=== PATIENT | male | born 1940 | race Caucasian/White ===

== ENCOUNTER 2019-05-22 11:20 | Outpatient (CLI) | payer SELFPAY ==
[2019-05-22 19:20] LABS: BASOPHILS # (AUTO) 0.1 10^3/uL (0.0-0.1); BASOPHILS % (AUTO) 0.6 %; EOSINOPHILS # (AUTO) 0.2 10^3/uL (0.0-0.7); EOSINOPHILS % (AUTO) 2.1 %; HGB - HEMOGLOBIN 13.7 g/dL (14.0-18.0); LYMPHOCYTES % (AUTO) 23.6 %; MEAN CORPUSCULAR HEMOGLOBIN 31.4 pg (27.0-31.0); MEAN CORPUSCULAR HGB CONC 31.9 g/dL (32.0-36.0); MEAN CORPUSCULAR VOLUME 98.4 fL (80.0-94.0); MEAN PLATELET VOLUME 11.9 fL (7.4-11.4); MONOCYTES # (AUTO) 0.7 10^3/uL (0.0-1.0); MONOCYTES % (AUTO) 7.7 %; NEUTROPHILS # (AUTO) 5.6 10^3/uL (1.5-6.6); NEUTROPHILS % (AUTO) 65.1 %; PLT - PLATELET COUNT 223 10^3/uL (130-450); RED BLOOD COUNT 4.37 10^6/uL (4.70-6.10); RED CELL DISTRIBUTION WIDTH 13.9 % (12.0-15.0); WHITE BLOOD COUNT 8.6 x10^3/uL (4.8-10.8)
[2019-05-22 19:31] LABS: CALCIUM 9.2 mg/dL (8.5-10.3); CREATININE 0.9 mg/dL (0.6-1.2)
== END 2019-05-22 23:59 | disposition home or self-care (01) ==
LOC: LAB.N 11:20
PROVIDERS: ATTEND Physician Assistant Medical
DX: I10 Essential (primary) hypertension (principal)
CPT/HCPCS: 36415; 80048; 84443; 85025

== ENCOUNTER 2019-06-15 13:35 | Emergency (ER) | payer SELFPAY ==
[2019-06-15] MEDS ORDERED: TETANUS/DIPHTHERIA/PERTUSSIS 0.5 ML SYRINGE IM ONE (13:44)
--- NOTE | 2019-06-15 13:46 | ED Physician Documentation ---
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 No distal neurovascular compromise. It measures about 3 cm.) - Neuro Neuro: Alert and oriented X 3, Normal speech Results - Vitals Vitals: Vital Signs - 24 hr 06/15/19 13:39 Temperature 36.8 C Heart Rate 90 Respiratory 16 Rate Blood Pressure 134/74 H O2 Saturation 93 Oxygen O2 Source Room air Procedures - Laceration (location) R forearm Length in cm: 3 Wound type: Irregular, Superficial, Into subcut fat Anesthesia: Lidocaine 1%, With bicarb Wound Preparation: Irrigated copiously NS Skin layer closure: Nylon, Interrupted, Size #-0 - enter number (4-0), Sutures - enter # (6) Other: Tetanus booster given Complexity: Simple Departure - Departure Disposition: 01 Home, Self Care Clinical Impression: Laceration Condition: Good Record reviewed to determine appropriate education?: Yes Instructions: ED Laceration All Comments: Come back for any signs of infection which would include: Redness, swelling, drainage, increased pain, or fevers. You can wash it soap and water. Keep it covered and moist with bacitracin ointment which is available over the counter; avoid neosporin. Follow-up with your physician in 14 days for suture removal. Your blood pressure was elevated today on check into the emergency department. This does not mean that you have hypertension, it is a common phenomenon to come to the emergency department and have elevated blood pressure. I recommend that you see your primary care physician within the week to have it rechecked when you are feeling better. Regrese por cualquier signo de infeccin que incluya: enrojecimiento, hinchazn, drenaje, aumento del dolor o fiebre. Puedes lavarlo con agua y jabn. Mantngalo cubierto y hmedo con ungento de bacitracina disponible sin receta mdica; Evitar la neosporina. Aundrea un seguimiento con jones mdico en 14 jaime para retirar la sutura. Jones presin arterial se elev hoy al registrarse en el departamento de emergencias. [place] no significa que tenga hipertensin, es un fenmeno comn acudir al departamento de emergencias y tener presin arterial elevada. Le recomiendo que consulte a jones mdico de atencin primaria dentro de la semana para que lo revisen nuevamente cuando se sienta mejor.
[2019-06-15] MEDS ORDERED: BUFFERED LIDOCAINE 10 ML SYRINGE SUBQ STA (13:47)
[2019-06-15 14:34] VITALS: BP 134/71
== END 2019-06-15 14:33 | disposition home or self-care (01) ==
LOC: ED 13:35
DX: S51.811A Laceration without foreign body of right forearm, initial encounter (principal); W20.1XXA Struck by object due to collapse of building, initial encounter; R03.0 Elevated blood-pressure reading, without diagnosis of hypertension
CPT/HCPCS: 12002; 90471

== ENCOUNTER 2019-08-05 02:13 | Outpatient (CLI) | payer SELFPAY | END 2019-08-05 02:14 | disposition critical access hospital (66) | LOC: EMS 02:13 | PROVIDERS: ATTEND Surgery | DX: R04.0 Epistaxis (principal) | CPT/HCPCS: A0425; A0429 ==

== ENCOUNTER 2019-08-05 02:33 | Emergency (ER) | payer SELFPAY ==
[2019-08-05] MEDS ORDERED: CAPTOPRIL 12.5 MG TABLET PO ONE (02:49)
--- NOTE | 2019-08-05 02:52 | ED Physician Documentation ---
History of Present Illness - Stated complaint Stated Complaint: EPISTAXIS - Chief complaint Chief Complaint: Heent - Additonal information Additional information: This is a 79-year-old male with a history of hypertension who presents with no sebleed and hypertension as well as resolved chest pain. Patient states that he woke up with some bleeding from his nose, he tried to hold pressure in the front of his nose but he felt the blood going back down his throat. EMS was called and when they arrived the bleeding had stopped, however on check of patient's blood pressure it was over 200 systolic. Patient also stated that earlier today in the afternoon he had a brief episode of chest pain which was substernal, he denies any pain at this time, denies shortness of breath. Because of the past chest pain and then high blood pressure he was brought here for further evaluation. Patient typically takes captopril 25 mg 3 times daily, but he has not taken it in the last day because he forgot. His daughters state that he his blood pressu re has been very high for a long time despite this medication. Review of Systems Constitutional: denies: Fever Nose: reports: Epistaxis Cardiac: reports: Chest pain / pressure. denies: Pedal edema Respiratory: denies: Dyspnea GI: denies: Vomiting Skin: denies: Rash Neurologic: denies: Generalized weakness PD PAST MEDICAL HISTORY - Past Medical History Cardiovascular: Hypertension Respiratory: None Neuro: None Endocrine/Autoimmune: None GI: None : Other HEENT: None Psych: None Musculoskeletal: None Derm: None - Present Medications Home Medications: Ambulatory Orders Medication Instructions Recorded Confirmed Captopril 25 mg PO TID 08/05/19 08/05/19 amLODIPine [Norvasc] 5 mg PO DAILY #15 tablet 08/05/19 - Allergies Allergies/Adverse Reactions: Allergies Allergy/AdvReac Type Severity Reaction Status Date / Time No Known Drug Allergies Allergy Verified 06/15/19 13:42 - Living Situation Living Situation: reports: With family Living Arrangement: reports: At home - Social History Does the pt smoke?: No Smoking Status: Never smoker PD ED PE NORMAL - Vitals Vital signs reviewed: Yes - General General: Alert and oriented X 3, No acute distress - HEENT HEENT: Other (Dried blood on the nares, no active bleeding.) - Neck Neck: Supple, no meningeal sign - Cardiac Cardiac: RRR - Respiratory Respiratory: No respiratory distress, Clear bilaterally - Abdomen Abdomen: Soft, Non distended - Derm Derm: Warm and dry - Extremities Extremities: No deformity - Neuro Neuro: Alert and oriented X 3 - Psych Psych: Normal mood, Normal affect Results - Vitals Vitals: Vital Signs - 24 hr 08/05/19 08/05/19 08/05/19 02:37 02:42 03:06 Temperature 37.4 C Heart Rate 69 67 Respiratory 17 17 Rate Blood Pressure 249/115 H 249/114 H O2 Saturation 96 97 08/05/19 08/05/19 08/05/19 03:08 03:15 04:15 Temperature Heart Rate 71 61 63 Respiratory 17 24 Rate Blood Pressure 249/117 H 218/107 H 236/123 H O2 Saturation 99 99 96 08/05/19 08/05/19 08/05/19 04:22 04:25 04:33 Temperature Heart Rate 62 57 L 58 L Respiratory 22 22 24 Rate Blood Pressure 199/88 H 219/97 H 220/103 H O2 Saturation 94 99 96 08/05/19 08/05/19 04:47 05:09 Temperature Heart Rate 67 Respiratory 17 Rate Blood Pressure 219/103 H 197/91 H O2 Saturation 100 Oxygen O2 Source Room air - EKG (time done) 2:36 Other comments: Other comments (Rate 69, rhythm sinus, no ST segment elevation or depression. T wave flattening in the lateral precordial leads.) - Labs Labs: Laboratory Tests 08/05/19 08/05/19 08/05/19 01:55 02:55 02:55 WBC 9.6 RBC 4.51 L Hgb 13.7 L Hct 41.8 L MCV 92.7 MCH 30.4 MCHC 32.8 RDW 12.7 Plt Count 226 MPV 11.4 Neut # (Auto) 6.5 Lymph # (Auto) 2.2 [place] # (Auto) 0.6 Eos # (Auto) 0.2 Baso # (Auto) 0.0 Absolute Nucleated RBC 0.00 Nucleated RBC % 0.0 PT 12.3 INR 1.1 Sodium 138 Potassium 3.6 Chloride 103 Carbon Dioxide 26 Anion Gap 9.0 BUN 27 H Creatinine 0.9 Estimated GFR (MDRD) 82 L Glucose 110 H Calcium 8.6 Total Bilirubin 0.8 AST 19 ALT 18 Alkaline Phosphatase 104 Troponin I High Sens Total Protein 7.1 Albumin 3.9 Globulin 3.2 Albumin/Globulin Ratio 1.2 Lipase 27 08/05/19 02:55 WBC RBC Hgb Hct MCV MCH MCHC RDW Plt Count MPV Neut # (Auto) Lymph # (Auto) [place] # (Auto) Eos # (Auto) Baso # (Auto) Absolute Nucleated RBC Nucleated RBC % PT INR Sodium Potassium Chloride Carbon Dioxide Anion Gap BUN Creatinine Estimated GFR (MDRD) Glucose Calcium Total Bilirubin AST ALT Alkaline Phosphatase Troponin I High Sens 4.3 Total Protein Albumin Globulin Albumin/Globulin Ratio Lipase - Rads (name of study) CXR Radiology: Other (Normal single view chest) PD MEDICAL DECISION MAKING - ED course Complexity details: considered differential (HTN, hypertensive urgency, epistaxis, coaguloapthy, ACS, PTX, MSK pain, PE) ED course: On arrival patient has no epistaxis. His BP is highly elevated, but he has a normal neurologic exam, no chest pain, no shortness of breath at this time. He was given lisinopril as we do not have captopril here. He was also given labetalol with temporary improvement of his BP to the high 100s systolic. CXR unremarkable, PE unlikely given pt's description of his chest pain and his normal O2 saturation and heart rate and the fact that it resolved. HS Troponin is negative and given his chest pain resolved hours ago a single troponin is sufficient. Pt was given a dose of hydralazine and on repeat examination his BP has improved to the high 100s. He is feeling well. I discussed that he needs to log his BP, take his medications every day as prescribed, and follow with his PCP as soon as possible to discuss further management of his BP. I prescribed 5mg amlodipine given that it sounds like his BP is in the high 100s or sometimes low 200s systolic even with the captopril. I discussed side effects and to hold the medication for lightheadedness or low blood pressure. I discussed return precuations including epistaxis not stopping with direct pressure, CP, shortness of breath, or any other concerning symptoms. Patient agreed and was discharged home. Departure - Departure Disposition: 01 Home, Self Care Clinical Impression: Epistaxis, Hypertension Condition: Good Instructions: ED Nosebleed, ED Hypertension Conf Out Of Control Follow-Up: Jones,doctor primario [Other] (lo mas pronto que es posible) Prescriptions: amLODIPine [Norvasc] 5 mg PO DAILY #15 tablet Comments: Usted tuvo sangrado de la naris y presion carolyn hoy. Es importante que ranjan jones medicamento cada petra, y probablemente necesita empezar otro medicamento para mejor control de la presion. Puede empezar la amlodipina y chequear la presion cada petra. Por favor, teresa yordy malik con jones doctor primario para chequear la presion y hablar sobre danial medicamentos. Si tiene mas sangrado que no pare con presion, dolor de pecho, dolor de jefferson delores, o otro sintomas neuvos, regrese a la china de emergencias. Discharge Date/Time: 08/05/19 05:33
[2019-08-05] MEDS ORDERED: LISINOPRIL 5 MG TABLET PO STA (02:56)
[2019-08-05] MEDS ORDERED: LABETALOL 20 MG/4 ML SYRINGE IVP STA ×2 (02:57→04:09)
[2019-08-05 03:01] LABS: BASOPHILS % (AUTO) 0.4 %; EOSINOPHILS # (AUTO) 0.2 10^3/uL (0.0-0.7); EOSINOPHILS % (AUTO) 1.9 %; HGB - HEMOGLOBIN 13.7 g/dL (14.0-18.0); LYMPHOCYTES # (AUTO) 2.2 10^3/uL (1.5-3.5); LYMPHOCYTES % (AUTO) 23.1 %; MEAN CORPUSCULAR HEMOGLOBIN 30.4 pg (27.0-31.0); MEAN CORPUSCULAR HGB CONC 32.8 g/dL (32.0-36.0); MEAN CORPUSCULAR VOLUME 92.7 fL (80.0-94.0); MEAN PLATELET VOLUME 11.4 fL (7.4-11.4); MONOCYTES # (AUTO) 0.6 10^3/uL (0.0-1.0); MONOCYTES % (AUTO) 6.1 %; NEUTROPHILS # (AUTO) 6.5 10^3/uL (1.5-6.6); NEUTROPHILS % (AUTO) 67.9 %; PLT - PLATELET COUNT 226 10^3/uL (130-450); RED BLOOD COUNT 4.51 10^6/uL (4.70-6.10); RED CELL DISTRIBUTION WIDTH 12.7 % (12.0-15.0); WHITE BLOOD COUNT 9.6 x10^3/uL (4.8-10.8)
[2019-08-05 03:07] LABS: INR 1.1 (0.8-1.2); PT - PROTHROMBIN TIME 12.3 secs (9.9-12.6)
--- NOTE | 2019-08-05 03:13 | XRAY Report ---
Reason: Chest Pain Procedure Date: 08/05/2019 Accession Number: [id number] / [id number] Procedure: XR - Chest 1 View X-Ray CPT Code: 51414 FULL RESULT: EXAM: CHEST RADIOGRAPHY EXAM DATE: 08/05/2019 03:04 AM. CLINICAL HISTORY: Chest Pain. COMPARISON: None. TECHNIQUE: 1 view. FINDINGS: Lungs/Pleura: No focal opacities evident. No pleural effusion. No pneumothorax. Mediastinum: Within exam limitations, the cardiomediastinal contour is normal. Other: None. IMPRESSION: Normal single view chest. RADIA
[2019-08-05 03:15] LABS: ALBUMIN 3.9 g/dL (3.2-5.5); ALBUMIN/GLOBULIN RATIO 1.2 (1.0-2.2); BILIRUBIN,TOTAL 0.8 mg/dL (0.2-1.0); CALCIUM 8.6 mg/dL (8.5-10.3); CREATININE 0.9 mg/dL (0.6-1.2); TOTAL PROTEIN 7.1 g/dL (6.7-8.2)
[2019-08-05] MEDS ORDERED: hydrALAZINE INJ 20 MG/ML VIAL IVP STA (04:37)
[2019-08-05 05:10] VITALS: BP 197/91
== END 2019-08-05 05:33 | disposition home or self-care (01) ==
LOC: EDUNIT# → ED 02:33
DX: R04.0 Epistaxis (principal); I10 Essential (primary) hypertension
CPT/HCPCS: 36415; 71045; 80053; 83690; 84484; 85025; 85610; 93005; 96374; 96375; 96376; 99284; A9270

== ENCOUNTER 2019-08-07 02:07 | Emergency (ER) | payer SELFPAY ==
[2019-08-07] MEDS ORDERED: cloNIDine 0.1 MG TABLET PO STA (03:33)
--- NOTE | 2019-08-07 04:07 | ED Physician Documentation ---
PD HPI HEENT - Stated complaint Stated Complaint: NONSTOP BLEEDING NOSE - Chief complaint Chief Complaint: Heent - History obtained from History obtained from: Patient, Family - History of Present Illness Timing - onset: How many days ago (2-3) Timing - duration: Days Timing - details: Intermittant Pain level now: 0 Location: Nose Improves: Nothing Worsens: Other (no exacerbating factors) Associated symptoms: Other (epistaxis). No: Congestion, Rhinorrhea Recently seen: Emergency Dept (T+R 2 days ago for similar symptoms) - Additional information Additional information: T+R 2 days ago for epistaxis. He was found to have significant hypertension at that time but blood tests were reassuring and epistaxis resolved once the blood pressure was improved with medications (given in ED). Patient returns due to recurrence of epistaxis tonight, predominantly left nare Review of Systems Constitutional: reports: Reviewed and negative Nose: reports: Epistaxis. denies: Rhinorrhea / runny nose, Congestion, Sinus pressure / pain Cardiac: denies: Chest pain / pressure Respiratory: denies: Dyspnea GI: denies: Vomiting, Hematemesis, Bloody / black stool PD PAST MEDICAL HISTORY - Past Medical History Cardiovascular: Hypertension Respiratory: None Neuro: None Endocrine/Autoimmune: None GI: None : Other HEENT: None Psych: None Musculoskeletal: None Derm: None - Present Medications Home Medications: Ambulatory Orders Medication Instructions Recorded Confirmed Captopril 25 mg PO TID 08/05/19 08/05/19 amLODIPine [Norvasc] 5 mg PO DAILY #15 tablet 08/05/19 Abiraterone Acetate [Zytiga] 100 mg PO DAILY 08/07/19 08/07/19 amLODIPine [Norvasc] 10 mg PO DAILY #15 tablet 08/07/19 - Allergies Allergies/Adverse Reactions: Allergies Allergy/AdvReac Type Severity Reaction Status Date / Time No Known Drug Allergies Allergy Verified 06/15/19 13:42 - Social History Does the pt smoke?: No Smoking Status: Never smoker PD ED PE NORMAL - Vitals Vital signs reviewed: Yes - General General: Alert and oriented X 3, No acute distress, Well developed/nourished - HEENT HEENT: Moist mucous membranes, Pharynx benign - Neck Neck: Supple, no meningeal sign - Cardiac Cardiac: RRR, No murmur - Respiratory Respiratory: No respiratory distress, Clear bilaterally - Abdomen Abdomen: Soft, Non tender - Derm Derm: Normal color, Warm and dry PD ED PE EXPANDED - HEENT HEENT: Other (dry, clotted blood at entrance of bilateral nares (L>R) but no active bleeding and no blood or clots in nares or mouth (posterior oropharynx)) Results - Vitals Vitals: Oxygen O2 Source Room air - Labs Labs: Laboratory Tests 08/07/19 08/07/19 04:36 04:36 WBC 10.6 RBC 4.24 L Hgb 13.1 L Hct 39.7 L MCV 93.6 MCH 30.9 MCHC 33.0 RDW 12.9 Plt Count 226 MPV 11.7 H Neut # (Auto) 7.2 H Lymph # (Auto) 2.4 [place] # (Auto) 0.7 Eos # (Auto) 0.2 Baso # (Auto) 0.0 Absolute Nucleated RBC 0.00 Nucleated RBC % 0.0 Sodium 139 Potassium 3.7 Chloride 104 Carbon Dioxide 26 Anion Gap 9.0 BUN 25 H Creatinine 1.1 Estimated GFR (MDRD) 65 L Glucose 111 H Calcium 8.9 PD MEDICAL DECISION MAKING - ED course Complexity details: reviewed old records, reviewed results, re-evaluated patient, considered differential, d/w patient, d/w family ED course: presents with epistaxis that stopped by the time I evaluated patient. As with his recent previous ED visit, he also presents with significant hypertension, although this was not as severe as previous visit. His blood pressure improved with PO clonidine and his blood tests tonight are again reassuring. Departure - Departure Disposition: 01 Home, Self Care Clinical Impression: Epistaxis, Hypertension Condition: Good Instructions: ED Nosebleed, ED Hypertension Conf Out Of Control Follow-Up: [facility] [Provider Group] Prescriptions: amLODIPine [Norvasc] 10 mg PO DAILY #15 tablet Comments: Stop the amlodipine 5mg once per day and start taking Amlodipine 10mg once per day Discharge Date/Time: 08/07/19 07:03
[2019-08-07 04:47] LABS: BASOPHILS % (AUTO) 0.4 %; EOSINOPHILS # (AUTO) 0.2 10^3/uL (0.0-0.7); EOSINOPHILS % (AUTO) 1.5 %; HGB - HEMOGLOBIN 13.1 g/dL (14.0-18.0); LYMPHOCYTES # (AUTO) 2.4 10^3/uL (1.5-3.5); LYMPHOCYTES % (AUTO) 22.9 %; MEAN CORPUSCULAR HEMOGLOBIN 30.9 pg (27.0-31.0); MEAN CORPUSCULAR VOLUME 93.6 fL (80.0-94.0); MEAN PLATELET VOLUME 11.7 fL (7.4-11.4); MONOCYTES # (AUTO) 0.7 10^3/uL (0.0-1.0); MONOCYTES % (AUTO) 6.8 %; NEUTROPHILS # (AUTO) 7.2 10^3/uL (1.5-6.6); PLT - PLATELET COUNT 226 10^3/uL (130-450); RED BLOOD COUNT 4.24 10^6/uL (4.70-6.10); RED CELL DISTRIBUTION WIDTH 12.9 % (12.0-15.0); WHITE BLOOD COUNT 10.6 x10^3/uL (4.8-10.8)
[2019-08-07 04:56] LABS: CALCIUM 8.9 mg/dL (8.5-10.3); CREATININE 1.1 mg/dL (0.6-1.2)
[2019-08-07 07:02] VITALS: BP 149/95
== END 2019-08-07 07:03 | disposition home or self-care (01) ==
LOC: ED 02:07
DX: R04.0 Epistaxis (principal); I10 Essential (primary) hypertension
CPT/HCPCS: 36415; 80048; 85025; 99283; 99284; A9270

== ENCOUNTER 2019-09-14 17:41 | Outpatient (CLI) | payer SELFPAY | END 2019-09-14 17:42 | disposition critical access hospital (66) | LOC: EMS 17:41 | PROVIDERS: ATTEND Surgery | DX: R55 Syncope and collapse (principal); R53.1 Weakness; R42 Dizziness and giddiness; R29.810 Facial weakness | CPT/HCPCS: A0425; A0427 ==

== ENCOUNTER 2019-09-14 18:03 | Observation (INO) | payer SELFPAY ==
--- NOTE | 2019-09-14 18:26 | ED Physician Documentation ---
History of Present Illness - Stated complaint Stated Complaint: SYNCOPAL EPISODE - Chief complaint Chief Complaint: Neuro - History obtained from History obtained from: Patient, Family, EMS - History of Present Illness Timing: Today Pain level max: 0 Pain level now: 0 - Additonal information Additional information: 79-year-old male was at the dinner table tonight when he felt his heart beating funny, felt lightheaded, cool clammy and passed out. He was unconscious for potentially a few minutes. No vomiting. No abdominal pain. Has not felt well he states for the past 3 days. Occasionally has chest pressure but none now. No heart problems in the past. He does have a history of prostate cancer and is on medications for hypertension. Has never passed out before. Nothing makes this better or worse. Review of Systems Ten Systems: 10 systems reviewed and negative Constitutional: denies: Fever, Chills Ears: denies: Ear pain Nose: denies: Rhinorrhea / runny nose, Congestion Cardiac: reports: Palpitations. denies: Pedal edema, Calf pain Respiratory: denies: Dyspnea, Cough, Hemoptysis, Wheezing GI: denies: Vomiting, Diarrhea Skin: denies: Rash Musculoskeletal: denies: Neck pain, Back pain Neurologic: denies: Headache PD PAST MEDICAL HISTORY - Past Medical History Cardiovascular: Hypertension Respiratory: None Neuro: None Endocrine/Autoimmune: None GI: None : Other HEENT: None Psych: None Musculoskeletal: None Derm: None - Present Medications Home Medications: Ambulatory Orders Medication Instructions Recorded Confirmed Abiraterone Acetate [Zytiga] 1,000 mg PO DAILY 08/07/19 08/07/19 amLODIPine [Norvasc] 10 mg PO DAILY #15 tablet 08/07/19 Hydrochlorothiazide 1 tab DAILY 09/14/19 09/14/19 Lisinopril 40 mg PO DAILY 09/14/19 09/14/19 Prednisone 5 mg PO DAILY 09/14/19 09/14/19 - Allergies Allergies/Adverse Reactions: Allergies Allergy/AdvReac Type Severity Reaction Status Date / Time No Known Drug Allergies Allergy Verified 09/14/19 18:18 - Social History Does the pt smoke?: No Smoking Status: Never smoker PD ED PE NORMAL - Vitals Vital signs reviewed: Yes - General General: Alert and oriented X 3, No acute distress, Well developed/nourished - HEENT HEENT: PERRL, Moist mucous membranes - Neck Neck: Supple, no meningeal sign - Cardiac Cardiac: RRR, No murmur, Strong equal pulses - Respiratory Respiratory: No respiratory distress, Clear bilaterally - Abdomen Abdomen: Soft, Non tender, Non distended - Derm Derm: Warm and dry - Extremities Extremities: No deformity, No edema, No calf tenderness / cord - Neuro Neuro: Alert and oriented X 3, housekeeper head 2-12 intact, No motor deficit, No sensory deficit Eye Opening: Spontaneous Motor: Obeys Commands Verbal: Oriented GCS Score: 15 - Psych Psych: Normal mood, Normal affect Results - Vitals Vitals: Vital Signs - 24 hr 09/14/19 09/14/19 09/14/19 18:03 18:39 19:15 Temperature 36.5 C Heart Rate 72 72 72 Respiratory 16 16 18 Rate Blood Pressure 149/79 H 128/88 H 126/85 H O2 Saturation 100 96 97 Oxygen O2 Source Room air - EKG (time done) 1807 Rate: Rate (enter#) (67) Rhythm: NSR, Other (PAC) [place]: LAD Intervals: Normal AR QRS: Normal Ischemia: Non specific changes - Labs Labs: Laboratory Tests 09/14/19 09/14/19 09/14/19 18:35 18:35 18:35 WBC 8.2 RBC 4.24 L Hgb 12.8 L Hct 38.4 L MCV 90.6 MCH 30.2 MCHC 33.3 RDW 13.2 Plt Count 235 MPV 11.2 Neut # (Auto) 5.5 Lymph # (Auto) 2.0 [place] # (Auto) 0.6 Eos # (Auto) 0.1 Baso # (Auto) 0.0 Absolute Nucleated RBC 0.00 Nucleated RBC % 0.0 Sodium 139 Potassium 3.0 L Chloride 100 L Carbon Dioxide 29 Anion Gap 10.0 BUN 26 H Creatinine 1.3 H Estimated GFR (MDRD) 54 L Glucose 133 H Calcium 8.9 Phosphorus Magnesium Total Bilirubin 0.9 AST 16 ALT 16 Alkaline Phosphatase 124 H Troponin I High Sens < 2.3 L Total Protein 7.0 Albumin 3.8 Globulin 3.2 Albumin/Globulin Ratio 1.2 Lipase 28 09/14/19 18:35 WBC RBC Hgb Hct MCV MCH MCHC RDW Plt Count MPV Neut # (Auto) Lymph # (Auto) [place] # (Auto) Eos # (Auto) Baso # (Auto) Absolute Nucleated RBC Nucleated RBC % Sodium Potassium Chloride Carbon Dioxide Anion Gap BUN Creatinine Estimated GFR (MDRD) Glucose Calcium Phosphorus 4.3 Magnesium 2.5 Total Bilirubin AST ALT Alkaline Phosphatase Troponin I High Sens Total Protein Albumin Globulin Albumin/Globulin Ratio Lipase - Rads (name of study) Chest x-ray Radiology: Prelim report reviewed, EMP read contemporaneously, See rad report (No acute abnormality) PD MEDICAL DECISION MAKING - ED course Complexity details: reviewed results, re-evaluated patient, considered differential, d/w patient, d/w family ED course: Patient presents to the emergency department with syncope today. Story is concerning for potential arrhythmia. We will place him on telemetry overnight and observe him further. Discussed the case with Dr. Way, hospitalist who accepts. This document was made in part using voice recognition software. While efforts are made to proofread this document, sound alike and grammatical errors may oc cur. Departure - Departure Disposition: ED Place in Observation Clinical Impression: Syncope Qualifiers: Syncope type: unspecified Qualified Code(s): R55 - Syncope and collapse Condition: Stable Discharge Date/Time: 09/14/19 19:48
[2019-09-14 18:42] LABS: BASOPHILS % (AUTO) 0.4 %; EOSINOPHILS # (AUTO) 0.1 10^3/uL (0.0-0.7); EOSINOPHILS % (AUTO) 1.1 %; HGB - HEMOGLOBIN 12.8 g/dL (14.0-18.0); LYMPHOCYTES % (AUTO) 23.9 %; MEAN CORPUSCULAR HEMOGLOBIN 30.2 pg (27.0-31.0); MEAN CORPUSCULAR HGB CONC 33.3 g/dL (32.0-36.0); MEAN CORPUSCULAR VOLUME 90.6 fL (80.0-94.0); MEAN PLATELET VOLUME 11.2 fL (7.4-11.4); MONOCYTES # (AUTO) 0.6 10^3/uL (0.0-1.0); MONOCYTES % (AUTO) 7.8 %; NEUTROPHILS # (AUTO) 5.5 10^3/uL (1.5-6.6); NEUTROPHILS % (AUTO) 66.6 %; PLT - PLATELET COUNT 235 10^3/uL (130-450); RED BLOOD COUNT 4.24 10^6/uL (4.70-6.10); RED CELL DISTRIBUTION WIDTH 13.2 % (12.0-15.0); WHITE BLOOD COUNT 8.2 x10^3/uL (4.8-10.8)
--- NOTE | 2019-09-14 18:48 | XRAY Report ---
Reason: Chest Pain Procedure Date: 09/14/2019 Accession Number: [id number] / [id number] Procedure: XR - Chest 1 View X-Ray CPT Code: 68040 Final Report FULL RESULT: EXAM: CHEST RADIOGRAPHY EXAM DATE: 09/14/2019 06:32 PM. CLINICAL HISTORY: Chest pain and pressure for 3-4 days. COMPARISON: CHEST 1 VIEW 08/05/2019 2:47 AM. TECHNIQUE: 1 view. FINDINGS: Lungs/Pleura: No focal opacities evident. No pleural effusion. No pneumothorax. Mediastinum: Within exam limitations, the cardiomediastinal contour is normal. Other: None. IMPRESSION: Normal single view chest. RADIA
[2019-09-14 18:54] LABS: ALBUMIN 3.8 g/dL (3.2-5.5); ALBUMIN/GLOBULIN RATIO 1.2 (1.0-2.2); BILIRUBIN,TOTAL 0.9 mg/dL (0.2-1.0); CALCIUM 8.9 mg/dL (8.5-10.3); CREATININE 1.3 mg/dL (0.6-1.2)
[2019-09-14] MEDS ORDERED: SODIUM CHLORIDE 0.9% 1,000 ML IV ONE (19:01)
[2019-09-14 19:16] LABS: MAGNESIUM 2.5 mg/dL (1.7-2.8); PHOSPHORUS 4.3 mg/dL (2.5-4.6)
[2019-09-14] MEDS ORDERED: IBUPROFEN 600 MG TABLET PO PRN (19:24)
[2019-09-14] MEDS ORDERED: SODIUM CHLORIDE FLUSH 0.9% 10 ML SYRINGE IVP PRN (19:24)
[2019-09-14] MEDS ORDERED: POTASSIUM CHLORIDE 20 MEQ TABLET PO STA (19:30)
--- NOTE | 2019-09-14 19:37 | HISTORY & PHYSICAL EXAMINATION ---
Chief Complaint - Chief Complaint Chief Complaint: Passed out History of Present Illness - Admitted From Admitted From:: Home - History Obtained From Records Reviewed: Yes History obtained from: Patient, Daughter, Grandson, ER Physician, EMR - History of Present Illness HPI Comment/Other: This is a 79-year-old [place]-speaking male with a past medical history significant for hypertension, prostate cancer who presents today after having a syncopal episode at home. His daughter reports that after dinner he was sitting there at the table when all of a sudden he slouched over and stared blankly. She said he looked pale and diaphoretic. The episode occurred for about 7 minutes. The patient denied any chest pain prior to the episode. He had been complaining of chest pressure over the past 3 to 4 days and feeling generally weak. He is also felt like he has had a lot of gas in his abdomen which she has been unable to get rid of. He reports no fevers, chills, palpitations, dyspnea. There is no prior history of syncope. He reports no prior history of cardiac disease. Has never had a stress test or echocardiogram to his knowledge. The daughter also stated that she felt like he had left sided facial droop during this episode. She said it lasted even after he gained consciousness and was present while he was in the ambulance. It has since resolved. The patient reports no focal weaknesses. He is complaining of some neck pain. He also has some numbness of his extremities which is not new. In the emergency department, he was found to be afebrile, heart in the 70s, blood pressure in the 120s over 80s, not tachypneic and saturating well on room air. His labs were significant for potassium of 3.0 and a creatinine of 1.3. His troponin was negative. EKG revealed a sinus rhythm with nonspecific ST segment changes and PACs. Given his presenting symptoms, he will be placed in observation for further work-up of his syncope. I did discuss goals of care with the patient and the family and patient would like to be full code. History - Past Medical History Cardiovascular: reports: Hypertension Respiratory: reports: None Neuro: reports: None Endocrine/Autoimmune: reports: None GI: reports: None : reports: Other (Prostate Cancer) HEENT: reports: None Psych: reports: None Musculoskeletal: reports: None Derm: reports: None - Family & Social History Family History Comment/Other: The patient's mother from myocardial infarction. The patient's father had a stroke. Living arrangement: At home Living Situation: With family Social History Notes: He moved from [place] to the area approximately 3 years ag o. 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 He is a non-smoker and does not drink alcohol. - Substance History Use: Uses substance without health or social issues: NONE Meds/Allgy - Home Medications Home Medications: Ambulatory Orders Medication Instructions Recorded Confirmed Abiraterone Acetate [Zytiga] 1,000 mg PO DAILY 08/07/19 08/07/19 amLODIPine [Norvasc] 10 mg PO DAILY #15 tablet 08/07/19 Hydrochlorothiazide 1 tab DAILY 09/14/19 09/14/19 Lisinopril 40 mg PO DAILY 09/14/19 09/14/19 Prednisone 5 mg PO DAILY 09/14/19 09/14/19 - Allergies Allergies/Adverse Reactions: Allergies Allergy/AdvReac Type Severity Reaction Status Date / Time No Known Drug Allergies Allergy Verified 09/14/19 18:18 Review of Systems - Constitutional Constitutional: reports: Fatigue, Weakness. denies: Fever, Chills, Poor appetite - Cardiovascular Cariovascular: reports: Chest pain, Lightheadedness, Syncope. denies: Pal pitations, Edema, Exertional dyspnea, Decr. exercise tolerance - Respiratory Respiratory: denies: Cough, SOB at rest, SOB with exertion - Gastrointestinal Gastrointestinal: reports: Abdominal pain, Constipation, Bloating. denies: Diarrhea, Bloody stools, Nausea, Vomiting - Musculoskeletal Musculoskeletal: reports: Back pain. denies: Limited range of motion, Muscle weakness - Integumentary Integumentary: denies: Rash - Neurological Neurological: reports: General weakness, Dizziness, Numbness. denies: Focal weakness - All Other Systems All Other Systems: reports: Reviewed and negative Prior Level of Functionality: Independent with ADL's. Exam - Vital Signs Reviewed Vital Signs: Yes Vital Signs: Vital Signs x48h Temp Pulse Resp BP Pulse Ox 09/14/19 19:15 72 18 126/85 H 97 09/14/19 18:39 72 16 128/88 H 96 09/14/19 18:03 36.5 C 72 16 149/79 H 100 - Physical Exam General Appearance: positive: No acute distress, Alert Eyes Bilateral: positive: Normal inspection, Conjunctivae nml ENT: positive: ENT inspection nml Neck: positive: Nml inspection Respiratory: positive: No respiratory distress. negative: Wheezes, Rales, Rhonchi Cardiovascular: positive: Regular rate & rhythm, No murmur. negative: Tachycardia, Bradycardia, Systolic murmur, Diastolic murmur Abdomen: positive: Nml bowel sounds, Tenderness (Minimal diffuse tenderness with palpation.). negative: Guarding, Rebound Back: positive: Other (No tenderness over C spine or paraspinal muscles.) Skin: positive: No rash, Warm, Dry. negative: Diaphoresis, Pallor, Skin rash Extremities: positive: Full ROM, No pedal edema Neurologic/Psychiatric: positive: Oriented x3, CN's nml (2-12), Motor nml, Sensation nml. negative: Disoriented to person, Disoriented to place, Disoriented to time, Weakness, Sensory loss, Facial droop, Slurred/abnml speech Conclusion/Plan - Problem List (1) Syncope Conclusion/Plan: Etiology is not clear at this time but history is concerning given he has been complaining of chest pain. Concern is for ischemia vs arrhythmia. There is a reported history of facial droop after the episode so stroke is in the differential. His EKG is relatively unchanged compared to prior EKG except for new PACs. Initial troponin is negative. We will check orthostatics, monitor on telemetry, trend troponins. We will obtain echocardiogram although this may be difficult over the weekend. If unable to do so tomorrow, he will need one on an outpatient basis BONNY. If all of this is unremarkable, he may need a Holter monitor and stress test. Qualifiers: Syncope type: unspecified Qualified Code(s): R55 - Syncope and collapse (2) Facial droop Conclusion/Plan: His daughter reported noticing a slight left-sided facial droop when he slouched over. This also persisted until the ambulance ride. Although he has no focal deficits at this time and is back to his baseline, this is concerning for possible TIA. Will obtain a CT of the head. (3) Hypertension Conclusion/Plan: His blood pressures currently well controlled. Will resume his home lisinopril in the morning. We will also continue his hydrochlorothiazide if orthostatics are negative. (4) Hypokalemia Conclusion/Plan: This may be secondary to his hydrochlorothiazide. This is likely contributing to his PACs as well.Will replace orally. He may require potassium supplementation on discharge. (5) Prostate cancer Conclusion/Plan: Is a history of prostate cancer for which he is on prednisone and Zytiga. Will resume his prednisone and he can continue his Zytiga once discharged. - Lab Results Lab results reviewed: Yes Fish Bones: 09/14/19 18:35 09/14/19 18:35 - EKG Results EKG Interpreted Independently: Yes EKG Comparison: Changed from prior EKG EKG Findings: His EKG reveals a sinus rhythm with nonspecific ST segment changes which were present on prior EKG. He does have PACs today and these are new. Core Measures - Anticipated LOS I expect patient to be DC'd or transferred within 96 hours.: Yes - Issues Hospital Issues and Management Plan: Placed in observation for syncope. Will obtain echocardiogram, monitor on telemetry, trend troponins, check orthostatics. - DVT/VTE - Prophylaxis VTE/DVT Device ordered at admit?: Yes VTE/DVT Prophylaxis med ordered at admit?: Yes
[2019-09-14 20:19] LABS: BILIRUBIN,URINE NEGATIVE (NEGATIVE); GLUCOSE, URINE (UA) NEGATIVE (NEGATIVE); KETONES,URINE (UA) NEGATIVE (NEGATIVE); LEUKOCYTE ESTERASE, URINE NEGATIVE (NEGATIVE); NITRITE,URINE NEGATIVE (NEGATIVE); OCCULT BLOOD,URINE NEGATIVE (NEGATIVE); PH,URINE 7.5 PH (5.0-7.5); PROTEIN,URINE NEGATIVE (NEGATIVE); UROBILINOGEN,URINE 1 (NORMAL) E.U./dL (NORMAL)
[2019-09-14 20:20] LABS: CLARITY,URINE CLEAR (CLEAR)
[2019-09-14] MEDS: POTASSIUM CHLOR 10 MEQ/100 ML 10 MEQ/100 ML BAG IV SCH ×2 (20:40→22:02)
--- NOTE | 2019-09-14 21:23 | CT Report ---
Reason: Syncope. Facial droop. Procedure Date: 09/14/2019 Accession Number: [id number] / [id number] Procedure: CT - HEAD WO CPT Code: Final Report FULL RESULT: EXAM: CT HEAD EXAM DATE: 09/14/2019 09:15 PM. CLINICAL HISTORY: Syncope. Facial droop. COMPARISON: None. TECHNIQUE: Multiaxial CT images were obtained from the foramen magnum to the vertex. Reformats: Sagittal and coronal. IV contrast: None. In accordance with CT protocol optimization, one or more of the following dose reduction techniques were utilized for this exam: automated exposure control, adjustment of mA and/or KV based on patient size, or use of iterative reconstructive technique. FINDINGS: Parenchyma: No intraparenchymal hemorrhage. No evidence of mass, midline shift, or CT findings of infarction. Rg-white differentiation is distinct. Extraaxial Spaces: Normal for age. No subdural or epidural collections identified. Ventricles: Normal in size and position. Sinuses and Orbits: Imaged paranasal sinuses, orbits, and mastoids show no significant abnormality. Bones: No evidence of fracture or calvarial defect. Other: None. IMPRESSION: Normal head CT. RADIA
[2019-09-14] MEDS: SODIUM CHLORIDE FLUSH 0.9% 10 ML SYRINGE IVP SCH (23:50)
[2019-09-15] MEDS ORDERED: ACETAMINOPHEN 325 MG TABLET PO PRN (03:59)
[2019-09-15 05:22] LABS: BASOPHILS # (AUTO) 0.1 10^3/uL (0.0-0.1); BASOPHILS % (AUTO) 0.6 %; EOSINOPHILS # (AUTO) 0.2 10^3/uL (0.0-0.7); EOSINOPHILS % (AUTO) 1.8 %; HGB - HEMOGLOBIN 11.8 g/dL (14.0-18.0); LYMPHOCYTES % (AUTO) 24.3 %; MEAN CORPUSCULAR HEMOGLOBIN 30.8 pg (27.0-31.0); MEAN CORPUSCULAR HGB CONC 33.5 g/dL (32.0-36.0); MEAN CORPUSCULAR VOLUME 91.9 fL (80.0-94.0); MEAN PLATELET VOLUME 11.3 fL (7.4-11.4); MONOCYTES # (AUTO) 0.6 10^3/uL (0.0-1.0); MONOCYTES % (AUTO) 6.9 %; NEUTROPHILS # (AUTO) 5.5 10^3/uL (1.5-6.6); NEUTROPHILS % (AUTO) 65.9 %; PLT - PLATELET COUNT 216 10^3/uL (130-450); RED BLOOD COUNT 3.83 10^6/uL (4.70-6.10); RED CELL DISTRIBUTION WIDTH 13.1 % (12.0-15.0); WHITE BLOOD COUNT 8.3 x10^3/uL (4.8-10.8)
[2019-09-15 05:28] LABS: CALCIUM 8.8 mg/dL (8.5-10.3); MAGNESIUM 2.2 mg/dL (1.7-2.8); PHOSPHORUS 3.8 mg/dL (2.5-4.6)
[2019-09-15] MEDS ORDERED: POTASSIUM CHLORIDE 20 MEQ TABLET PO ONE (06:09)
[2019-09-15 06:22] LABS: HEMOGLOBIN A1C 0.51 g/dL
[2019-09-15] MEDS ORDERED: POLYETHYLENE GLYCOL 3350 17 GM PACKET PO PRN (06:58)
[2019-09-15] MEDS ORDERED: PANTOPRAZOLE 40 MG TABLET PO SCH (07:00)
[2019-09-15] MEDS ORDERED: predniSONE 5 MG TABLET PO SCH (08:00)
[2019-09-15] MEDS: SODIUM CHLORIDE FLUSH 0.9% 10 ML SYRINGE IVP SCH (08:14)
[2019-09-15] MEDS ORDERED: ENOXAPARIN 40 MG/0.4 ML SYRINGE SUBQ SCH (09:00)
--- NOTE | 2019-09-15 11:36 | Discharge Plan ---
Discharge Plan Problem Reviewed?: Yes Disposition: Home, Self Care Condition: Stable Prescriptions: Bisacodyl [Dulcolax] 10 mg PO DAILY PRN #4 tablet PRN Reason: Constipation Lisinopril 20 mg PO DAILY #30 tablet Diet: Regular Activity Restrictions: Activity as Tolerated Shower Restrictions: No Driving Restrictions: No Health Concerns: You came to the hospital because you had passed out. Even though your blood pressure was normal, we found you to have low blood pressure when we checked you from laying down, to sitting, to standing. That improved with hydration. Your CAT scan of your head was normal. You are mildly anemic but not enough to cause you to pass out.. Plan of Treatment: 1. We are going to cut your lisinopril dose in half. Continue your amlodipine. 2. See your new doctor in the next week for follow-up of your blood pressure and to see that your blood pressures returned to normal when you go from sitting to standing. 3. Because you have had an episode of fainting, you will need 3 more tests that your doctor needs to order. One is an echocardiogram which is an ultrasound video of your heart. A stress test to see how your heart does when it is exercising. And something called a Holter monitor which watches your heart rhythm for 24 hours. Care Goals: To not pass out Assessment: Patient speaks Serbian. Tube his grandsons are here and understand the care goals. No Smoking: If you smoke, Please STOP! Call for help. Follow-up with: Sharee Mayer PA-C [Provider Admit Priv/Credential] -
--- NOTE | 2019-09-15 15:16 | Ultrasound Report ---
Reason: synope left facial droop Procedure Date: 09/15/2019 Accession Number: [id number] / [id number] Procedure: US - Carotid Doppler Complete CPT Code: Final Report FULL RESULT: EXAM: BILATERAL CAROTID AND VERTEBRAL ARTERY DUPLEX DOPPLER ULTRASOUND: EXAM DATE: 09/15/2019 02:45 PM CLINICAL HISTORY: Syncope left facial droop. COMPARISON: None. TECHNIQUE: Grayscale imaging, color Doppler, and duplex spectral Doppler were used to evaluate the carotid and vertebral arteries bilaterally. Static images were obtained. FINDINGS: Mild foci of plaque seen in the bilateral ICA sinuses and proximal ICA segments. Normal antegrade flow is present in bilateral vertebral arteries. VELOCITIES (cm/sec): Right CCA mid: PSV 78.0 cm/sec CCA dist: PSV 81.4 cm/sec ICA prox: PSV 101.0 cm/sec, EDV 22.8 cm/sec ICA mid: PSV 81.4 cm/sec, EDV 24.1 cm/sec ICA dist: PSV 101.5 cm/sec, EDV 26.0 cm/sec ECA: PSV 132 cm/sec Vert: PSV 65.0 cm/sec ICA/CCA: 1.2 Left CCA mid: PSV 75.9 cm/sec CCA dist: PSV 66.5 cm/sec ICA prox: PSV 106.2 cm/sec, EDV 19.9 cm/sec ICA mid: PSV 96.4 cm/sec, EDV 22.1 cm/sec ICA dist: PSV 95.4 cm/sec, EDV 29.1 cm/sec ECA: PSV 94.4 cm/sec Vert: PSV 45.4 cm/sec ICA/CCA: 1.4 IMPRESSION: 1. Mild bilateral proximal internal carotid artery plaquing. 2. In the right carotid artery there are no elevated carotid artery velocities to suggest hemodynamically significant stenosis. 3. In the left carotid artery there are no elevated carotid artery velocities to suggest hemodynamically significant stenosis. 4. Normal antegrade flow is present in bilateral vertebral arteries. General Recommendations: Stenosis =50% ICA - Follow-up ultrasound 6-12 months Stenosis <50% ICA - High Risk Patient with plaque - Follow-up ultrasound 1-2 years Normal Study but High Risk Patient - Follow-up ultrasound 3-5 years Management recommendations and diagnostic criteria are based on current IAC endorsed standards in Carotid Artery Stenosis: Grayscale and Doppler Ultrasound Diagnosis. Validated velocity measurements with angiographic measurements and velocity criteria are extrapolated from diameter data as defined by the Society of Radiologists in Ultrasound Consensus Conference Radiology 2003; 229;340-346. RADIA
[2019-09-15 16:11] VITALS: BP 147/86
--- NOTE | 2019-09-15 19:09 | DISCHARGE SUMMARY ---
Physician: Shanti Zepeda MD DATE OF ADMISSION: 09/14/2019 DATE OF DISCHARGE: 09/15/2019 DISCHARGE DIAGNOSES: 1. Syncope. 2. Orthostatic hypotension. 3. Facial droop. 4. Hypertension. 5. Hypokalemia. 6. Prostate cancer. PRINCIPAL PROCEDURES: 1. Serial troponins, which were negative. 2. Chest x-ray, which showed a normal single view chest. 3. Head CT with no evidence of acute change. Normal head CT. 4. Carotid Doppler study with lack of any elevated carotid artery velocities to suggest hemodynamica lly significant stenosis in either artery. Normal antegrade flow was present in bilateral vertebral arteries. HOSPITAL COURSE: This basilio gentleman was admitted because of syncope. Please refer to th e admission history and physical dictated by Sundar Way MD. The patient was suspected to have ortho static changes on the basis of his history. Orthostatic blood pressure showed him to have a blood pr essure of 123/76 supine position. Sitting blood pressure 115/70. Standing blood pressure 101/72. H e had mild dehydration as evidenced on BUN but otherwise creatinine was normal. Mildly anemic at 11. 8-12.8 grams of hemoglobin. MEDICATIONS: Review of his medications was done and he is on: 1. Lisinopril 40 mg. 2. Norvasc 10 mg. 3. Prednisone 5 mg. 4. Hydrochlorothiazide 12.5. 5. Zytiga. The patient will need continued workup for his orthostatic syncope. His lisinopril was cut in half t o 20 mg a day and he was sent home. However, he is being asked to follow up with his Primary Care pr ovider and get an echocardiogram, stress test and Holter monitor ordered for him. During this holiday weekend, none of those modalities are available at the hospital. He is discharged in stable conditi on. PHYSICAL EXAMINATION: VITAL SIGNS: Temperature is 36.3, pulse is 76, blood pressure 147/86, respirations 19 and he is 99% on room air. GENERAL: He is an alert, oriented, male, multiple family members in the room with him. No JVD. He has received 2 liters of IV fluid and his orthostatic changes have resolved. LUNGS: Clear. No crackles, rhonchi or wheezing. HEART: He has a regular rate and rhythm. ABDOMEN: Benign. EXTREMITIES: Feet are without edema. He is able to sit up on his own, stand on his own and ambulate in the room without assistance. I have explained to him about orthostatic hypotension while his lisinopril has been cut in half but okry talavera does need to follow up with his PCP. TD: 09/15/2019 17:03
== END 2019-09-15 16:26 | disposition home or self-care (01) ==
LOC: EDUNIT# → ED 18:03 → MS2 19:24
PROVIDERS: ADMIT Internal Medicine; ATTEND Specialist
DX: I95.1 Orthostatic hypotension (principal); R29.810 Facial weakness; I10 Essential (primary) hypertension; E87.6 Hypokalemia; C61 Malignant neoplasm of prostate; E86.0 Dehydration; D64.9 Anemia, unspecified; R07.89 Other chest pain
CPT/HCPCS: 36415; 70450; 71045; 80048; 80053; 81003; 83036; 83690; 83735; 84100; 84484; 85025; 93005; 93880; 96361; 96365; 96366; 96372; 99285; A9270; G0378; J1650; J7512; 81001; 87086

== ENCOUNTER 2019-10-02 10:27 | Outpatient (CLI) | payer SELFPAY | END 2019-10-02 10:28 | disposition critical access hospital (66) | LOC: EMS 10:27 | PROVIDERS: ATTEND Surgery | DX: R55 Syncope and collapse (principal) | CPT/HCPCS: A0425; A0429 ==

== ENCOUNTER 2019-10-02 10:50 | Emergency (ER) | payer SELFPAY ==
[2019-10-02 11:45] LABS: BASOPHILS % (AUTO) 0.4 %; EOSINOPHILS # (AUTO) 0.1 10^3/uL (0.0-0.7); EOSINOPHILS % (AUTO) 1.3 %; HGB - HEMOGLOBIN 12.5 g/dL (14.0-18.0); LYMPHOCYTES # (AUTO) 1.9 10^3/uL (1.5-3.5); LYMPHOCYTES % (AUTO) 20.7 %; MEAN CORPUSCULAR HEMOGLOBIN 31.3 pg (27.0-31.0); MONOCYTES # (AUTO) 0.7 10^3/uL (0.0-1.0); MONOCYTES % (AUTO) 7.1 %; NEUTROPHILS # (AUTO) 6.4 10^3/uL (1.5-6.6); NEUTROPHILS % (AUTO) 69.8 %; PLT - PLATELET COUNT 225 10^3/uL (130-450); RED CELL DISTRIBUTION WIDTH 13.3 % (12.0-15.0); WHITE BLOOD COUNT 9.2 x10^3/uL (4.8-10.8)
[2019-10-02 11:58] LABS: ALBUMIN 3.7 g/dL (3.2-5.5); ALBUMIN/GLOBULIN RATIO 1.1 (1.0-2.2); BILIRUBIN,TOTAL 1.1 mg/dL (0.2-1.0); CALCIUM 8.9 mg/dL (8.5-10.3); CREATININE 1.1 mg/dL (0.6-1.2)
[2019-10-02] MEDS ORDERED: SODIUM CHLORIDE 0.9% 1,000 ML IV ONE ×2 (13:05)
[2019-10-02] MEDS ORDERED: IOVERSOL 320 100 ML VIAL IVP ONE ×2 (13:08→13:29)
--- NOTE | 2019-10-02 13:09 | ED Physician Documentation ---
PD HPI SYNCOPE - Stated complaint Stated Complaint: DIZZY - Chief complaint Chief Complaint: Neuro - History obtained from History obtained from: Patient, Family, EMS - History of Present Illness Witnessed: Unwitnessed Timing - onset: Today Preceding symptoms: Headache (states occipital headache, then lightheaded, sweaty and dizzy. no palpitations.) Associated symptoms: No: Chest pain, Palpitations, Dyspnea, Nausea / vomiting, Abdominal pain Contributing factors: Recent med change (decreased lisinopril). No: Decreased PO intake Injury occurred: Fell, Head injury Pain level max: 3 Pain level now: 1 Treatment VISUAL DISPLAY MANAGER: No: Dextrose, Narcan, Fluids, O2, Cardiac meds, CPR, C spine precautions Similar symptoms before: Diagnosis (2 weeks ago, similar symptoms.) Recently seen: Other (recently in OBS for same) Review of Systems Ten Systems: 10 systems reviewed and negative Constitutional: denies: Fever, Chills Nose: denies: Rhinorrhea / runny nose, Congestion Throat: denies: Sore throat Skin: denies: Rash Musculoskeletal: denies: Back pain, Extremity pain Neurologic: denies: Focal weakness, Numbness, Confused, Altered mental status PD PAST MEDICAL HISTORY - Past Medical History Past Medical History: Yes Cardiovascular: Hypertension Respiratory: None Neuro: None Endocrine/Autoimmune: None GI: None : Other HEENT: None Psych: None Musculoskeletal: None Derm: None - Past Surgical History General: Appendectomy HEENT: Cataracts - Present Medications Home Medications: Ambulatory Orders Medication Instructions Recorded Confirmed Abiraterone Acetate [Zytiga] 1,000 mg PO DAILY 08/07/19 10/02/19 amLODIPine [Norvasc] 10 mg PO DAILY #15 tablet 08/07/19 10/02/19 Hydrochlorothiazide 12.5 mg PO DAILY 09/14/19 10/02/19 Prednisone 5 mg PO DAILY 09/14/19 10/02/19 Bisacodyl [Dulcolax] 10 mg PO DAILY PRN #4 tablet 09/15/19 10/02/19 Lisinopril 20 mg PO DAILY #30 tablet 09/15/19 10/02/19 - Allergies Allergies/Adverse Reactions: Allergies Allergy/AdvReac Type Severity Reaction Status Date / Time No Known Drug Allergies Allergy Verified 10/02/19 11:04 - Social History Does the pt smoke?: No Smoking Status: Never smoker Does the pt drink ETOH?: No Does the pt have substance abuse?: No - Immunizations Immunizations: TDAP >10years/unknown PD ED PE NORMAL - Vitals Vital signs reviewed: Yes - General General: Alert and oriented X 3, No acute distress, Well developed/nourished - HEENT HEENT: Atraumatic, PERRL, EOMI, Ears normal, Moist mucous membranes, Pharynx benign, Dentition benign - Neck Neck: Supple, no meningeal sign, No bony TTP, No bruit - Cardiac Cardiac: RRR, No murmur, No gallop, No rub, Strong equal pulses - Respiratory Respiratory: No respiratory distress, Clear bilaterally - Abdomen Abdomen: Soft, Non tender, Non distended - Derm Derm: Warm and dry, No rash - Extremities Extremities: No edema, No calf tenderness / cord - Neuro Neuro: Alert and oriented X 3, 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 2-12 intact, No motor deficit, No sensory deficit, Normal speech Eye Opening: Spontaneous Motor: Obeys Commands Verbal: Oriented GCS Score: 15 - Psych Psych: Normal mood, Normal affect Results - Vitals Vitals: Vital Signs - 24 hr 10/02/19 10/02/19 10/02/19 10:51 12:00 14:00 Temperature 36.6 C Heart Rate 75 70 72 Heart Rate [ Sitting] Heart Rate [ Standing] Heart Rate [ Supine] Respiratory 16 19 22 Rate Blood Pressure 150/84 H 121/77 126/77 Blood Pressure [Sitting] Blood Pressure [Standing] Blood Pressure [Supine] O2 Saturation 100 97 96 10/02/19 10/02/19 10/02/19 14:04 14:52 15:41 Temperature Heart Rate 69 69 Heart Rate [ 72 Sitting] Heart Rate [ 80 Standing] Heart Rate [ 65 Supine] Respiratory 21 23 Rate Blood Pressure 142/76 H 160/75 H Blood Pressure 121/77 [Sitting] Blood Pressure 126/77 [Standing] Blood Pressure 157/80 H [Supine] O2 Saturation 98 99 Oxygen O2 Source Room air - EKG (time done) 1100 Rate: Rate (enter#) (73) Rhythm: NSR [place]: Normal Intervals: Normal [place] QRS: Normal Ischemia: Normal ST segments - Labs Labs: Laboratory Tests 10/02/19 10/02/19 10/02/19 11:38 11:38 11:38 WBC 9.2 RBC 4.00 L Hgb 12.5 L Hct 36.8 L MCV 92.0 MCH 31.3 H MCHC 34.0 RDW 13.3 Plt Count 225 MPV 11.0 Neut # (Auto) 6.4 Lymph # (Auto) 1.9 [place] # (Auto) 0.7 Eos # (Auto) 0.1 Baso # (Auto) 0.0 Absolute Nucleated RBC 0.00 Nucleated RBC % 0.0 Sodium 141 Potassium 3.5 Chloride 104 Carbon Dioxide 30 Anion Gap 7.0 BUN 28 H Creatinine 1.1 Estimated GFR (MDRD) 65 L Glucose 93 Calcium 8.9 Total Bilirubin 1.1 H AST 15 ALT 15 Alkaline Phosphatase 115 Troponin I High Sens < 2.3 L Total Protein 7.0 Albumin 3.7 Globulin 3.3 Albumin/Globulin Ratio 1.1 Lipase 21 L - Rads (name of study) CTA neck Radiology: Prelim report reviewed, EMP read contemporaneously CTA head Radiology: Prelim report reviewed, EMP read contemporaneously PD MEDICAL DECISION MAKING - ED course Complexity details: reviewed results, re-evaluated patient, considered differential, d/w patient ED course: 79-year-old male presents to the emergency department after a syncopal event today. No acute findings on laboratory testing, telemetry, EKG or angiograms of the head and neck. I spoke with his primary care provider who is going to arrange for expedited Holter monitoring and cardiac echo. Patient was recently admitted for same. Does not want to be readmitted today. Feels better after IV fluids. Patient counseled regarding signs and symptoms for which I believe and urgent re-evaluation would be necessary. Patient with good understanding of and agreement to plan and is comfortable going home at this time This document was made in part using voice recognition software. While efforts are made to proofread this document, sound alike and grammatical errors may occur. IMPRESSION: CT SCAN HEAD: 1. No definite acute infarct seen. If there is clinical concern for acute stroke or if symptoms persist an MR brain could be considered to evaluate for small or subtle pathology. 2. No acute intracranial hemorrhage, mass, hydrocephalus, or midline shift. No abnormal postcontrast enhancement. 3. Mild to moderate white matter changes that appear similar to CT head 09/14/2019 and may represent sequela of chronic small vessel ischemic disease. CT ANGIOGRAM NECK: 1. There is atherosclerotic plaque involving the arterial vasculature of the neck with no high-grade stenosis or definite dissection seen. CT ANGIOGRAM HEAD: 1. No large vessel occlusion. 2. No aneurysm. No significant stenosis. Departure - Departure Disposition: 01 Home, Self Care Clinical Impression: Syncope Qualifiers: Syncope type: unspecified Qualified Code(s): R55 - Syncope and collapse Condition: Good Instructions: ED Fainting Unkn Cause Follow-Up: Anirudh Romero PA-C [Primary Care Provider] - Comments: Make sure you are drinking plenty of water at home. I spoke with Anirudh NORMAN today, the clinic will call you to set up cardiac monitoring and a more urgent echocardiogram. Return if you worsen Discharge Date/Time: 10/02/19 15:50
--- NOTE | 2019-10-02 13:11 | XRAY Report ---
Reason: syncope Procedure Date: 10/02/2019 Accession Number: [id number] / [id number] Procedure: XR - Chest 1 View X-Ray CPT Code: 63614 Final Report FULL RESULT: EXAM: CHEST RADIOGRAPHY EXAM DATE: 10/02/2019 12:49 PM. CLINICAL HISTORY: Syncope and collapse. COMPARISON: CHEST 1 VIEW 09/14/2019 6:16 PM. TECHNIQUE: 1 view. FINDINGS: Lungs/Pleura: No focal opacities evident. No pleural effusion. No pneumothorax. Mediastinum: Heart and mediastinal contours are notable for aortic calcification. Other: None. IMPRESSION: No acute cardiopulmonary abnormality demonstrated. RADIA
--- NOTE | 2019-10-02 14:15 | CT Report ---
Reason: headache, syncope Procedure Date: 10/02/2019 Accession Number: [id number] / [id number] Procedure: CT - ANGIO HEAD W/WO CPT Code: Final Report FULL RESULT: EXAM: CT ANGIOGRAM HEAD AND NECK. CT SCAN HEAD WITHOUT AND WITH CONTRAST. EXAM DATE: 10/02/2019 01:28 PM. CLINICAL HISTORY: 79-year-old presenting after syncopal episode with headache. Evaluate for intracranial pathology or vascular pathology. COMPARISON: Noncontrast CT head 09/14/2019. TECHNIQUE: Routine axial helical CTA imaging was performed from the aortic arch through the [place]. Routine axial CT imaging of the head was performed prior to and following contrast administration. Reconstructions: Routine multiplanar 3D MIP reconstructions. IV contrast: 80 cc Optiray 320. NASCET Criteria are used for stenosis measurements. In accordance with CT protocol optimization, one or more of the following dose reduction techniques were utilized for this exam: automated exposure control, adjustment of mA and/or KV based on patient size, or use of iterative reconstructive technique. FINDINGS: NON-CONTRAST HEAD: Parenchyma: No acute parenchymal hemorrhage, mass, or midline shift. There is mild to moderate bilateral areas of white matter attenuation seen that appear similar CT head . There is no current CT evidence of acute infarct. Cortical volume appears age-appropriate. Extraaxial Spaces: Normal for age.No subdural or epidural collections identified. Ventricles: Normal in size and position. Sinuses and orbits: Changes of right lens replacement. There is dense calcification seen along the medial aspect of the right globe similar to prior study. There is minimal mucosal thickening of the left maxillary sinus. Mastoid air cells and mature cavities appear clear. Bones: No evidence of fracture or calvarial defect. Other: Vascular calcifications of the cavernous and supraclinoid ICA segments. POST-CONTRAST HEAD: No abnormal enhancement. CT ANGIOGRAM HEAD AND NECK: Atherosclerotic plaque involving the otic arch with no high-grade stenosis seen.The left vertebral artery arises from the aortic arch. There is atherosclerotic plaque involving the origins of the great vessels but no definite high-grade stenosis seen.The visualized subclavian arteries appear normal. RIGHT: Common Carotid Artery: Patent without significant stenosis. Carotid Bulb: There is mild atherosclerotic plaque at the carotid bifurcation. Stenosis at the bifurcation by NASCET criteria:No significant stenosis. Internal Carotid Artery: Tortuosity of the cervical ICA with slight retropharyngeal course with no definite high-grade stenosis or dissection seen. Atherosclerotic plaque involving the cavernous and supraclinoid ICA segments with no high-grade stenosis.No evidence of aneurysm along the intracranial ICA. External Carotid Artery: Unremarkable. Vertebral Artery: There is atherosclerotic plaque involving the origin and possible V1 segment of the right vertebral artery with no high-grade stenosis seen. The V2 through intradural V4 segments are patent with no high-grade stenosis or definite dissection seen.No aneurysm. Anterior Cerebral Artery: Patent without significant stenosis, aneurysm, or vascular malformation. Middle Cerebral Artery: Patent without significant stenosis, aneurysm, or vascular malformation. Posterior Cerebral Artery: Patent without significant stenosis, aneurysm, or vascular malformation. Posterior Communicating Artery: Patent.No aneurysm. LEFT: Common Carotid Artery: Patent without significant stenosis. Carotid Bulb: There is mild calcified and noncalcified atherosclerotic plaque at the carotid bifurcation. Stenosis at the bifurcation by NASCET criteria: No significant stenosis. Internal Carotid Artery: Tortuosity of the cervical ICA with slight retropharyngeal course with no definite dissection or high-grade stenosis seen. Other scattered plaque involving the cavernous and supraclinoid ICA segments with no high-grade stenosis.No evidence of aneurysm along the intracranial ICA. External Carotid Artery: Unremarkable. 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 The vertebral artery appears patent with no high-grade stenosis.No evidence of dissection.No aneurysm. Anterior Cerebral Artery: Patent without significant stenosis, aneurysm, or vascular malformation. Middle Cerebral Artery: Patent without significant stenosis, aneurysm, or vascular malformation. Posterior Cerebral Artery: Patent without significant stenosis, aneurysm, or vascular malformation. Posterior Communicating Artery: Patent.No aneurysm. CENTRAL: Anterior Communicating Artery: Patent.No aneurysm. Basilar Artery: Patent without significant stenosis.No aneurysm. DURAL VENOUS SINUSES AND MAJOR CENTRAL VEINS: Patent. OTHER: The visualized pharynx and larynx appear normal.There is a hyperdense lesion within the superficial) the lobe likely representing intraparotid lymph node measuring to formula meters. Otherwise a visually major salivary glands are normal.There are several small hypodense nodule seen within the bilateral thyroid lobes larger measuring up to 7 mm in the right and 4 mm on the left.No cervical lymphadenopathy.No necrotic lymph nodes.Soft tissues of the neck appear normal. Pleural-parenchymal scarring of the visualized lung apices. No acute fracture or traumatic subluxation.Multilevel degenerative changes.No suspicious osseous lesion seen. IMPRESSION: CT SCAN HEAD: 1. No definite acute infarct seen. If there is clinical concern for acute stroke or if symptoms persist an MR brain could be considered to evaluate for small or subtle pathology. 2. No acute intracranial hemorrhage, mass, hydrocephalus, or midline shift. No abnormal postcontrast enhancement. 3. Mild to moderate white matter changes that appear similar to CT head 09/14/2019 and may represent sequela of chronic small vessel ischemic disease. CT ANGIOGRAM NECK: 1. There is atherosclerotic plaque involving the arterial vasculature of the neck with no high-grade stenosis or definite dissection seen. CT ANGIOGRAM HEAD: 1. No large vessel occlusion. 2. No aneurysm. No significant stenosis. RADIA
[2019-10-02 15:43] VITALS: BP 160/75
== END 2019-10-02 15:50 | disposition home or self-care (01) ==
LOC: EDUNIT# → ED 10:50
DX: R55 Syncope and collapse (principal); I10 Essential (primary) hypertension
CPT/HCPCS: 36415; 70496; 70498; 71045; 80053; 83690; 84484; 85025; 93005; 96360; 99284; 99285; Q9967

== ENCOUNTER 2019-10-22 16:32 | Outpatient (CLI) | payer SELFPAY | END 2019-10-22 16:33 | disposition critical access hospital (66) | LOC: EMS 16:32 | PROVIDERS: ATTEND Surgery | DX: R07.1 Chest pain on breathing (principal); R53.1 Weakness; R42 Dizziness and giddiness | CPT/HCPCS: A0425; A0427 ==

== ENCOUNTER 2019-10-22 16:53 | Emergency (ER) | payer SELFPAY ==
[2019-10-22 17:19] LABS: BASOPHILS % (AUTO) 0.5 %; EOSINOPHILS # (AUTO) 0.2 10^3/uL (0.0-0.7); HGB - HEMOGLOBIN 12.6 g/dL (14.0-18.0); LYMPHOCYTES # (AUTO) 2.2 10^3/uL (1.5-3.5); LYMPHOCYTES % (AUTO) 26.8 %; MEAN CORPUSCULAR VOLUME 91.4 fL (80.0-94.0); MEAN PLATELET VOLUME 11.3 fL (7.4-11.4); MONOCYTES # (AUTO) 0.7 10^3/uL (0.0-1.0); MONOCYTES % (AUTO) 8.1 %; NEUTROPHILS % (AUTO) 62.1 %; PLT - PLATELET COUNT 241 10^3/uL (130-450); RED BLOOD COUNT 4.06 10^6/uL (4.70-6.10); RED CELL DISTRIBUTION WIDTH 13.7 % (12.0-15.0)
--- NOTE | 2019-10-22 17:29 | ED Physician Documentation ---
PD HPI CHEST PAIN - Stated complaint Stated Complaint: CP - Chief complaint Chief Complaint: Cardiac - History obtained from History obtained from: Patient (he declined A nurses medical assistants phlebotomists and wanted to use the daughter for that purpose.), Family - History of Present Illness Timing - onset: Today (79-year-old gentleman who is had recurrent chest and back pain. Today he was at rest and developed substernal chest tightness radiating up to the back and the posterior neck. He got dizzy but did not pass out. I guess he has had episodes like this before and is referred to a telephoner but has not gone yet. He felt short of breath with it. Had some fatigue. Denied nausea. A couple of days ago he felt tingly all over.) Review of Systems Ten Systems: 10 systems reviewed and negative Constitutional: reports: Fatigue. denies: Fever, Chills Nose: denies: Rhinorrhea / runny nose Throat: denies: Sore throat Cardiac: reports: Chest pain / pressure. denies: Palpitations, Pedal edema, Calf pain Respiratory: reports: Dyspnea. denies: Cough GI: denies: Abdominal Pain, Nausea PD PAST MEDICAL HISTORY - Past Medical History Past Medical History: Yes Cardiovascular: Hypertension Respiratory: None Neuro: None Endocrine/Autoimmune: None GI: None : Other HEENT: None Psych: None Musculoskeletal: None Derm: None Other Past Medical History: prostate cancer - Past Surgical History Past Surgical History: Yes General: Appendectomy HEENT: Cataracts - Present Medications Home Medications: Ambulatory Orders Medication Instructions Recorded Confirmed Abiraterone Acetate [Zytiga] 1,000 mg PO DAILY 08/07/19 10/02/19 amLODIPine [Norvasc] 10 mg PO DAILY #15 tablet 08/07/19 10/02/19 Hydrochlorothiazide 12.5 mg PO DAILY 09/14/19 10/02/19 Prednisone 5 mg PO DAILY 09/14/19 10/02/19 bisacodyL [Dulcolax] 10 mg PO DAILY PRN #4 tablet 09/15/19 10/02/19 lisinopriL [Lisinopril] 20 mg PO DAILY #30 tablet 09/15/19 10/02/19 Potassium Chloride 10 meq PO BID #10 tablet.er 10/22/19 - Allergies Allergies/Adverse Reactions: Allergies Allergy/AdvReac Type Severity Reaction Status Date / Time No Known Drug Allergies Allergy Verified 10/22/19 17:03 - Social History Does the pt smoke?: No Smoking Status: Never smoker Does the pt drink ETOH?: No Does the pt have substance abuse?: No - Family History Family history: reports: Non contributory - Immunizations Immunizations are current?: No Immunizations: TDAP >10years/unknown - POLST Patient has POLST: No PD ED PE NORMAL - Vitals Vital signs reviewed: Yes - General General: Alert and oriented X 3, No acute distress - HEENT HEENT: PERRL, EOMI - Neck Neck: Supple, no meningeal sign, No bony TTP - Cardiac Cardiac: RRR, No murmur - Respiratory Respiratory: No respiratory distress, Clear bilaterally - Abdomen Abdomen: Normal bowel sounds, Soft, Non tender - Back Back: No CVA TTP, No spinal TTP - Derm Derm: Normal color, Warm and dry - Extremities Extremities: No edema, No calf tenderness / cord - Neuro Neuro: Alert and oriented X 3, Normal speech Results - Vitals Vitals: Vital Signs - 24 hr 10/22/19 10/22/19 10/22/19 16:55 17:04 18:38 Temperature 98.2 C H Heart Rate 77 71 Respiratory 18 21 Rate Blood Pressure 132/83 H 140/83 H Blood Pressure 131/78 H [Right] O2 Saturation 95 98 10/22/19 19:52 Temperature 37.1 C Heart Rate 73 Respiratory 18 Rate Blood Pressure 142/77 H Blood Pressure [Right] O2 Saturation 95 Oxygen O2 Source Room air - EKG (time done) 747 Rate: Rate (enter#) (74) Rhythm: NSR [place]: LAD (borderline) Intervals: Normal GA, Prolonged QT Ischemia: Non specific changes Computer interpretation: Agree with computer - Labs Labs: Laboratory Tests 10/22/19 10/22/19 10/22/19 17:13 17:13 17:15 WBC 8.0 RBC 4.06 L Hgb 12.6 L Hct 37.1 L MCV 91.4 MCH 31.0 MCHC 34.0 RDW 13.7 Plt Count 241 MPV 11.3 Neut # (Auto) 5.0 Lymph # (Auto) 2.2 [place] # (Auto) 0.7 Eos # (Auto) 0.2 Baso # (Auto) 0.0 Absolute Nucleated RBC 0.00 Nucleated RBC % 0.0 D-Dimer Sodium 139 Potassium 2.5 L* Chloride 104 Carbon Dioxide 26 Anion Gap 9.0 BUN 35 H Creatinine 1.4 H Estimated GFR (MDRD) 49 L Glucose 126 H Calcium 9.0 Total Bilirubin 1.0 AST 17 ALT 15 Alkaline Phosphatase 132 H Troponin I High Sens < 2.3 L Total Protein 6.7 Albumin 3.7 Globulin 3.0 Albumin/Globulin Ratio 1.2 Lipase 32 10/22/19 10/22/19 10/22/19 17:15 19:51 19:51 WBC RBC Hgb Hct MCV MCH MCHC RDW Plt Count MPV Neut # (Auto) Lymph # (Auto) [place] # (Auto) Eos # (Auto) Baso # (Auto) Absolute Nucleated RBC Nucleated RBC % D-Dimer < 200.0 L Sodium Potassium 2.9 L Chloride Carbon Dioxide Anion Gap BUN Creatinine Estimated GFR (MDRD) Glucose Calcium Total Bilirubin AST ALT Alkaline Phosphatase Troponin I High Sens 3.3 Total Protein Albumin Globulin Albumin/Globulin Ratio Lipase - Rads (name of study) 1v chest Radiology: EMP read contemporaneously (normal) PD MEDICAL DECISION MAKING - ED course ED course: 79-year-old gentleman with atypical chest pain with some very odd symptoms, which consider probably due to significant hypokalemia. Potassium was repleted both IV and orally with improvement in his symptoms. He was advised to stop taking hydrochlorothiazide pending follow-up with his physician. 2 troponins were done in the department without significant change or elevation. Departure - Departure Disposition: 01 Home, Self Care Clinical Impression: Hypokalemia Chest pain Qualifiers: Chest pain type: unspecified Qualified Code(s): R07.9 - Chest pain, unspecified Condition: Good Record reviewed to determine appropriate education?: Yes Instructions: Hypokalemia Dc, ED Chest Pain NonCardiac Prescriptions: Potassium Chloride 10 meq PO BID #10 tablet.er Comments: 139/5000Deje de truong hidroclorotiazida. Est bajando tu potasio. Vuelve si peor. Aundrea yordy malik para von a jones mdico dentro de 1 semana.
--- NOTE | 2019-10-22 17:30 | XRAY Report ---
Reason: chest pain Procedure Date: 10/22/2019 Accession Number: [id number] / [id number] Procedure: XR - Chest 1 View X-Ray CPT Code: 57603 Final Report FULL RESULT: EXAM: CHEST RADIOGRAPHY EXAM DATE: 10/22/2019 05:23 PM. CLINICAL HISTORY: Chest pain. COMPARISON: CHEST 1 VIEW 10/02/2019 12:29 PM. TECHNIQUE: 1 view. FINDINGS: Lungs/Pleura: Clear. No effusion or pneumothorax. Mediastinum: Within exam limitations, the cardiomediastinal contour is normal. Upper lobe vessels not distended. Other: None. IMPRESSION: No acute disease. RADIA
[2019-10-22 17:31] LABS: ALBUMIN 3.7 g/dL (3.2-5.5); ALBUMIN/GLOBULIN RATIO 1.2 (1.0-2.2); CREATININE 1.4 mg/dL (0.6-1.2); TOTAL PROTEIN 6.7 g/dL (6.7-8.2)
[2019-10-22] MEDS ORDERED: POTASSIUM CHLORIDE 20 MEQ TABLET PO STA (17:46)
[2019-10-22] MEDS ORDERED: POTASSIUM CHLOR 10 MEQ/100 ML 10 MEQ/100 ML BAG IV ONE (17:46)
[2019-10-22 19:57] VITALS: BP 142/77
== END 2019-10-22 20:45 | disposition home or self-care (01) ==
LOC: EDUNIT# → ED 16:53
DX: E87.6 Hypokalemia (principal); R07.89 Other chest pain; I45.81 Long QT syndrome; I10 Essential (primary) hypertension
CPT/HCPCS: 36415; 71045; 80053; 83690; 84132; 84484; 85025; 85379; 93005; 96365; 99284; A9270

== ENCOUNTER 2020-04-08 19:12 | Outpatient (CLI) | payer SELFPAY | END 2020-04-08 19:13 | disposition EMS.NT | LOC: EMS 19:12 | PROVIDERS: ATTEND Surgery | DX: R55 Syncope and collapse (principal) ==

== ENCOUNTER 2023-03-06 17:55 | Emergency (ER) | payer MEDICAID ==
--- NOTE | 2023-03-06 18:43 | ED Physician Documentation ---
History of Present Illness - Stated complaint Stated Complaint: RT LG PX - Chief complaint Chief Complaint: Ext Problem - History obtained from History obtained from: Patient, Family - History of Present Illness Pain level max: 6 Pain level now: 6 - Additonal information Additional information: Patient is an 82-year-old male who has a history of congestive heart failure and prostate cancer. He is brought in today by his family. He has had a right thigh pain described as sharp and like [id number] for the past 1 year. He states it has become more constant and is worsening. He states that has been more steady over the past 1 week. Does not seem to be worse with walking or movement. Nothing seems to make it better. No fevers. No chills. He is on Eliquis for atrial fibrillation. He is on oral chemotherapy for his prostate cancer. Review of Systems Constitutional: denies: Fever, Chills Respiratory: denies: Cough GI: denies: Vomiting, Diarrhea Skin: denies: Rash Musculoskeletal: denies: Neck pain, Back pain Neurologic: denies: Focal weakness, Numbness, Headache PD PAST MEDICAL HISTORY - Past Medical History Past Medical History: Yes Cardiovascular: Hypertension Respiratory: None Neuro: None Endocrine/Autoimmune: None GI: None : Other HEENT: None Psych: None Musculoskeletal: None Derm: None - Past Surgical History Past Surgical History: Yes General: Appendectomy HEENT: Cataracts - Present Medications Home Medications: Ambulatory Orders Medication Instructions Recorded Confirmed Abiraterone Acetate [Zytiga] 1,000 mg PO DAILY 08/07/19 03/06/23 predniSONE [Prednisone] 5 mg PO DAILY 09/14/19 03/06/23 lisinopriL [Lisinopril] 20 mg PO DAILY #30 tablet 09/15/19 03/06/23 Potassium Chloride 10 meq PO BID #10 tablet.er 10/22/19 03/06/23 Apixaban [Eliquis] 5 mg PO BID 03/06/23 03/06/23 Calcium Carbonate [Tums (Calcium 1,000 mg PO BID #14 tablet 03/06/23 Carbonate 500mg)] Furosemide [Lasix] 40 mg PO DAILY 03/06/23 03/06/23 HYDROcod/ACETAM 5/325 [[place] 5/325] 1 ea PO Q6H PRN #14 tablet 05/21/23 Metoprolol Succinate [[place] 50 mg PO DAILY 03/06/23 03/06/23 Sprinkle] Valproic Acid 250 mg PO DAILY 03/06/23 03/06/23 - Allergies Allergies/Adverse Reactions: Allergies Allergy/AdvReac Type Severity Reaction Status Date / Time No Known Drug Allergies Allergy Verified 03/06/23 18:19 - Social History Does the pt smoke?: No Smoking Status: Never smoker Does the pt drink ETOH?: No Does the pt have substance abuse?: No - Immunizations Immunizations are current?: No Immunizations: TDAP >10years/unknown - POLST Patient has POLST: No PD ED PE NORMAL - Vitals Vital signs reviewed: Yes - General General: Alert and oriented X 3, No acute distress - HEENT HEENT: PERRL, Moist mucous membranes - Neck Neck: Supple, no meningeal sign - Cardiac Cardiac: RRR, Strong equal pulses - Respiratory Respiratory: No respiratory distress, Clear bilaterally - Abdomen Abdomen: Soft, Non tender, Non distended - Derm Derm: Warm and dry - Extremities Extremities: No edema, No calf tenderness / cord, Other (Mild tender to palp ation medial aspect of the right thigh, approximately midway down the thigh. Neurovascular intact. No skin changes. No edema. No calf tenderness. Otherwise normal exam. Full range of motion of the knee and hip without pain.) - Neuro Neuro: Alert and oriented X 3 - Psych Psych: Normal mood, Normal affect Results - Vitals Vitals: Vital Signs - 24 hr 03/06/23 03/06/23 03/06/23 18:11 19:00 20:35 Temperature 36.8 C 36.5 C Heart Rate 78 137 H 110 H Respiratory 16 21 18 Rate Blood Pressure 100/69 128/82 H 120/84 H O2 Saturation 99 99 98 Oxygen O2 Source Room air - Labs Labs: Laboratory Tests 03/06/23 03/06/23 03/06/23 18:55 18:55 18:55 WBC 10.1 RBC 4.09 L Hgb 11.9 L Hct 37.6 L MCV 91.9 MCH 29.1 MCHC 31.6 L RDW 18.6 H Plt Count 197 MPV 11.6 H Neut # (Auto) 6.5 Lymph # (Auto) 2.6 [place] # (Auto) 0.8 Eos # (Auto) 0.1 Baso # (Auto) 0.0 Absolute Nucleated RBC 0.00 Nucleated RBC % 0.0 VBG pH 7.444 H Ionized Calcium YES 0.96 L Sodium 140 Potassium 3.8 Chloride 101 Carbon Dioxide 23 Anion Gap 16.0 H BUN 33 H Creatinine 1.2 Estimated GFR (MDRD) 58 L Glucose 120 H Calcium 7.5 L Phosphorus 3.8 Magnesium 2.5 Total Bilirubin 0.6 AST 14 ALT 12 Alkaline Phosphatase 91 Total Protein 6.4 L Albumin 3.5 Globulin 2.9 Albumin/Globulin Ratio 1.2 - Rads (name of study) Right femur x-ray Relevant Findings:: Final report received, See rad report Right lower extremity duplex ultrasound Relevant Findings:: Final report received, See rad report PD Medical Decision Making - ED course Complexity details: reviewed results, re-evaluated patient, considered differential, d/w patient, d/w family ED course: 82-year-old male with right thigh pain for the past 1 year. No acute findings on x-ray. History of prostate cancer, no evidence of metastases. No evidence of DVT on ultrasound. Does have hypocalcemia and we will place on oral calcium. Unclear etiology of his symptoms. We will also prescribe a small amount of pain medication for home. We will have him follow-up with his doctor for further care. Ambulating without difficulty here. Patient and family counseled regarding signs and symptoms for which I believe and urgent re-evaluation would be necessary. Patient with good understanding of and agreement to plan and is comfortable going home at this time This document was made in part using voice recognition software. While efforts are made to proofread this document, sound alike and grammatical errors may occur. Departure - Departure Disposition: 01 Home, Self Care Clinical Impression: Hypocalcemia Pain of lower extremity Qualifiers: Laterality: right Qualified Code(s): M79.604 - Pain in right leg Condition: Good Instructions: ED Acute Pain UKO, ED Hypocalcemia Follow-Up: Peyman Comer MD [Primary Care Provider] - Within 1 week Prescriptions: HYDROcod/ACETAM 5/325 [[place] 5/325] 1 ea PO Q6H PRN #14 tablet PRN Reason: Pain Calcium Carbonate [Tums (Calcium Carbonate 500mg)] 1,000 mg PO BID #14 tablet Comments: Please follow-up with your doctor for further care. You need to have your calcium rechecked within 1 week. Your prescriptions were sent to [facility] in [place]. I am prescribing a short course of narcotic pain medication for you. These are potentially dangerous and addictive medications that should be used carefully. These medications may constipate you. Take an xxlm-all-zmyztxz stool softener (docusate) twice daily with plenty of water while taking these medications. If you go 24 hours without a bowel movement, take gyzb-ncp-jvxdcjg miralax, per package instructions. Do not drink or drive while taking these medications. If you received narcotic or sedating medications while in the emergency department, do not drive for 24 hours. Store this medication in a safe, secure place and out of reach of children. It is a violation of federal law to give or sell this medication to another person or to use in a manner other than prescribed. The ED will not refill narcotic prescriptions, including prescriptions lost or stolen. To dispose of unwanted medications: 1. [facility] at [address] in [place] has a medication drop box. They accept prescription medications (in pill form) Tuesday through Tuesday 9:00 a.m. to 5:00 p.m. 2. [facility] [employer] accepts prescription medications (in pill form only) for disposal year round. Call for more information. 3. Contact the [facility] for the next [facility] sponsored prescription drug collection event. , [phone], or [phone]; Discharge Date/Time: 03/06/23 20:35
[2023-03-06 19:01] LABS: BASOPHILS % (AUTO) 0.3 %; EOSINOPHILS # (AUTO) 0.1 10^3/uL (0.0-0.7); EOSINOPHILS % (AUTO) 1.2 %; HCT - HEMATOCRIT 37.6 % (42.0-52.0); HGB - HEMOGLOBIN 11.9 g/dL (14.0-18.0); LYMPHOCYTES # (AUTO) 2.6 10^3/uL (1.5-3.5); LYMPHOCYTES % (AUTO) 26.2 %; MEAN CORPUSCULAR HEMOGLOBIN 29.1 pg (27.0-31.0); MEAN CORPUSCULAR HGB CONC 31.6 g/dL (32.0-36.0); MEAN CORPUSCULAR VOLUME 91.9 fL (80.0-94.0); MEAN PLATELET VOLUME 11.6 fL (7.4-11.4); MONOCYTES # (AUTO) 0.8 10^3/uL (0.0-1.0); MONOCYTES % (AUTO) 7.4 %; NEUTROPHILS # (AUTO) 6.5 10^3/uL (1.5-6.6); NEUTROPHILS % (AUTO) 64.1 %; PLT - PLATELET COUNT 197 10^3/uL (130-450); RED BLOOD COUNT 4.09 10^6/uL (4.70-6.10); RED CELL DISTRIBUTION WIDTH 18.6 % (12.0-15.0); WHITE BLOOD COUNT 10.1 x10^3/uL (4.8-10.8)
[2023-03-06 19:14] LABS: ALBUMIN 3.5 g/dL (3.2-5.5); ALBUMIN/GLOBULIN RATIO 1.2 (1.0-2.2); ALKALINE PHOSPHATASE 91 IU/L (42-121); ALT ALANINE AMINOTRANSFERASE 12 IU/L (10-60); AST ASPARTATE AMINOTRANSFERASE 14 IU/L (10-42); BILIRUBIN,TOTAL 0.6 mg/dL (0.2-1.0); BUN - BLOOD UREA NITROGEN 33 mg/dL (6-20); CALCIUM 7.5 mg/dL (8.5-10.3); CARBON DIOXIDE - CO2 23 mmol/L (21-32); CHLORIDE 101 mmol/L (101-111); CREATININE 1.2 mg/dL (0.6-1.2); GFR - MDRD 58 (>89); GLUCOSE 120 mg/dL (70-100); IONIZED CALCIUM IF INDICATED YES; MAGNESIUM 2.5 mg/dL (1.7-2.8); PHOSPHORUS 3.8 mg/dL (2.5-4.6); POTASSIUM 3.8 mmol/L (3.5-5.0); SODIUM 140 mmol/L (135-145); TOTAL PROTEIN 6.4 g/dL (6.7-8.2)
[2023-03-06 19:25] LABS: CALCIUM, IONIZED 0.96 mmol/L (1.15-1.33); VBG PH 7.444 (7.31-7.41)
[2023-03-06] MEDS ORDERED: CALCIUM CARBONATE CHEW 500 MG TABLET PO STA (19:33)
--- NOTE | 2023-03-06 19:52 | XRAY Report ---
PROCEDURE: Femur 2V RT INDICATIONS: R thigh pain, h/o prostate CA TECHNIQUE: 2 views of the femur were acquired. COMPARISON: None. FINDINGS: Bones: No fractures or dislocations. No suspicious bony lesions. Mild degenerative joint disease. Soft tissues: No suspicious soft tissue calcifications or masses. IMPRESSION: No acute bony abnormality. If clinical symptoms persist, consider MRI. Reviewed by: Sarahy Antoine MD on 03/06/2023 7:51 PM PDT Approved by: Sarahy Antoine MD on 03/06/2023 7:51 PM PDT Station ID: [id number]
[2023-03-06] MEDS ORDERED: HYDROcod/ACETAM 5/325 MG TABLET PO STA (20:15)
--- NOTE | 2023-03-06 20:20 | Ultrasound Report ---
PROCEDURE: Duplex Ext Veins Right INDICATIONS: RLE pain TECHNIQUE: Real-time imaging, as well as color and pulse Doppler interrogation, were performed of the lower extr emity deep veins from the inguinal ligament to the popliteal fossa. COMPARISON: None. FINDINGS: The deep veins are normally compressible, and free of intraluminal thrombus. Color and pu lse Doppler demonstrate normal phasic intraluminal flow. There is normal augmentation response to di stal compression maneuver. IMPRESSION: No DVT in the right lower extremity. Reviewed by: Sarahy Antoine MD on 03/06/2023 8:19 PM PDT Approved by: Sarahy Antoine MD on 03/06/2023 8:19 PM PDT Station ID: [id number]
[2023-03-06 20:38] VITALS: BP 120/84
== END 2023-03-06 20:35 | disposition home or self-care (01) ==
LOC: ED 17:55
DX: E83.51 Hypocalcemia (principal); M79.604 Pain in right leg; I11.0 Hypertensive heart disease with heart failure; I50.9 Heart failure, unspecified; Z85.46 Personal history of malignant neoplasm of prostate
CPT/HCPCS: 36415; 73552; 80053; 82330; 83735; 84100; 85025; 93971; 99283; 99284; A9270

== ENCOUNTER 2024-02-03 10:14 | Outpatient (CLI) | payer MEDICAID ==
[2024-02-03 12:08] LABS: BASOPHILS # (AUTO) 0.1 10^3/uL (0.0-0.1); BASOPHILS % (AUTO) 0.7 %; EOSINOPHILS # (AUTO) 0.2 10^3/uL (0.0-0.7); EOSINOPHILS % (AUTO) 2.1 %; HGB - HEMOGLOBIN 13.2 g/dL (14.0-18.0); LYMPHOCYTES # (AUTO) 2.3 10^3/uL (1.5-3.5); LYMPHOCYTES % (AUTO) 29.7 %; MEAN CORPUSCULAR HEMOGLOBIN 29.8 pg (27.0-31.0); MEAN CORPUSCULAR HGB CONC 32.2 g/dL (32.0-36.0); MEAN CORPUSCULAR VOLUME 92.6 fL (80.0-94.0); MEAN PLATELET VOLUME 11.7 fL (7.4-11.4); MONOCYTES # (AUTO) 0.7 10^3/uL (0.0-1.0); MONOCYTES % (AUTO) 9.6 %; NEUTROPHILS # (AUTO) 4.4 10^3/uL (1.5-6.6); NEUTROPHILS % (AUTO) 57.5 %; PLT - PLATELET COUNT 211 10^3/uL (130-450); RED BLOOD COUNT 4.43 10^6/uL (4.70-6.10); RED CELL DISTRIBUTION WIDTH 13.8 % (12.0-15.0); WHITE BLOOD COUNT 7.6 x10^3/uL (4.8-10.8)
[2024-02-03 12:58] LABS: ESTIMATED AVERAGE GLUCOSE 123 mg/dL (70-100); HEMOGLOBIN A1c% 5.9 % (4.27-6.07)
[2024-02-03 13:00] LABS: ALBUMIN 3.8 g/dL (3.2-5.5); ALBUMIN/GLOBULIN RATIO 1.4 (1.0-2.2); ALKALINE PHOSPHATASE 76 IU/L (42-121); ALT ALANINE AMINOTRANSFERASE 11 IU/L (10-60); AST ASPARTATE AMINOTRANSFERASE 11 IU/L (10-42); BILIRUBIN,TOTAL 0.7 mg/dL (0.2-1.0); BUN - BLOOD UREA NITROGEN 28 mg/dL (6-20); CALCIUM 9.9 mg/dL (8.5-10.3); CARBON DIOXIDE - CO2 27 mmol/L (21-32); CHLORIDE 105 mmol/L (101-111); CREATININE 1.5 mg/dL (0.6-1.3); GFR - MDRD 45 (>89); GLUCOSE 100 mg/dL (74-104); POTASSIUM 3.9 mmol/L (3.5-4.5); SODIUM 140 mmol/L (135-145); THYROID STIMULATING HORMONE 3.68 uIU/mL (0.34-5.60); TOTAL PROTEIN 6.5 g/dL (6.4-8.9); VALPROIC ACID (DEPAKOTE) 85.6 ug/mL
== END 2024-02-03 10:15 | disposition home or self-care (01) ==
LOC: LAB.N 10:14
PROVIDERS: ATTEND Internal Medicine
DX: C61 Malignant neoplasm of prostate (principal); I50.20 Unspecified systolic (congestive) heart failure; G40.309 Generalized idiopathic epilepsy and epileptic syndromes, not intractable, without status epilepticus; Z79.52 Long term (current) use of systemic steroids; I48.19 Other persistent atrial fibrillation
CPT/HCPCS: 36415; 80053; 80164; 83036; 83880; 84153; 84443; 85025

== ENCOUNTER 2024-02-03 10:20 | Outpatient (CLI) | payer MEDICAID ==
--- NOTE | 2024-02-03 12:25 | XRAY Report ---
PROCEDURE: Ribs w/PA Chest 4+V BL INDICATIONS: SYSTOLIC HEART FAILURE TECHNIQUE: 2 views of the ribs were acquired, along with a single view chest. COMPARISON: Chest x-ray 11/01/2019 FINDINGS: Surgical changes and devices: None. Bones and chest wall: No fractures or dislocations. No suspicious bony lesions. Overlying soft tis sues appear unremarkable. Lungs and pleura: No pleural effusions or pneumothorax. Lungs appear clear. Mediastinum: Mediastinal contours appear normal. Heart size is normal. IMPRESSION: No visualized acute fracture or dislocation. However, occult injury cannot be excluded. Recommend anish rt interval imaging follow-up in 7-10 days as clinically indicated for additional evaluation. Reviewed by: Yelena Parekh MD on 02/03/2024 12:23 PM PDT Approved by: Yelena Parekh MD on 02/03/2024 12:23 PM PDT Station ID: [id number]
== END 2024-02-03 10:21 | disposition home or self-care (01) ==
LOC: DI.N 10:20
PROVIDERS: ATTEND Internal Medicine
DX: I50.20 Unspecified systolic (congestive) heart failure (principal); C61 Malignant neoplasm of prostate